=== PATIENT | female | born 1955 | race Caucasian/White ===

== ENCOUNTER 2017-04-01 15:25 | Emergency (ER) | payer MEDICAID, OTHER ==
[~2017-04-01] VITALS: Ht 157.5 cm; Wt 47.6 kg
[~2017-04-01 15:25] MED LIST: DOCU-109 PO; FURO20TA3 PO; LUBI8CAP4 PO; OXYC15TA PO; POLY17PO29 PO; SPIR100T2 PO
[2017-04-01 16:44] VITALS: BP 106/69
[2017-04-01] MEDS ORDERED: HYDROcodone/APAP 5/325MG 1 TAB TABLET PO ONE (17:00)
[2017-04-01] MEDS ORDERED: HYDR-971 PO (18:41)
--- NOTE | 2017-04-01 18:41 | PHYS DOC ---
Past Medical History Past Medical History: Constipation, Other Additional Past Medical Histor: Hepatitis C, cirrhosis, bowel obstruction Past Surgical History: , Tonsillectomy Additional Past Surgical Histo: dilation and curretage x2, hernia repair, paracentesis Alcohol Use: Heavy Drug Use: None Adult General Chief Complaint Chief Complaint: MECHANICAL FALL HPI HPI Patient is a 61 year old female with history significant for liver cirrhosis secondary to alcohol abuse in the past, presents here today complaining of pain to her left wrist that she incurred after falling down while moving furniture. Patient reports she tripped while walking backwards and fell on outstretched hand. Patient denies any history of hypertension diabetes lung or kidney problems. Patient reports she still drinks and drank approximately one and half beers earlier today. Patient denies any pain anywhere else other than to her left wrist. Patient denies any neck pain back pain. Patient has any head trauma. Patient has a loss of consciousness. Patient has a nausea vomiting diarrhea fevers shakes chills cough cold or rhinorrhea. Patient reports been tolerating by mouth's well. Review of systems: Constitutional: Denies fever or chills Eyes: Denies change in visual acuity, redness, or eye pain HENT: Denies nasal congestion or sore throat Respiratory: Denies cough or shortness of breath All other systems were reviewed and found to be within normal limits, except as documented in this note. Physical exam: Constitutional: Well developed, well nourished, no acute distress, non-toxic appearance. HENT: Normocephalic, atraumatic, bilateral external ears normal, nose normal. Eyes: PERRLA, EOMI, conjunctiva normal, no discharge. Neck: Normal range of motion, no tenderness, supple, no stridor. Cardiovascular: Heart rate regular rhythm, Lungs & Thorax: Bilateral breath sounds clear to auscultation Abdomen: No abdominal distention. Skin: Warm, dry, no erythema, no rash. Back: Normal spinal curvature Extremities: Patient with soft tissue swelling and deformity to her left wrist. Patient has no snuffbox tenderness. Patient is neurovascularly intact. Patient has good capillary refill. Patient's radial ulnar and median nerves all intact. Neurologic: Alert and oriented X 3, normal motor function, normal sensory function, no focal deficits noted. Psychologic: Affect normal, judgement normal, mood normal. X-ray of left wrist reveals a minimally displaced not shortened distal radius fracture of the left wrist with no intra-articular involvement. There is a question of a nondisplaced ulnar styloid fracture however this appears to be a likely old fracture. Assessment and plan: 1. Left distal radius fracture. Patient is clinically and hemodynamically stable at this time other than the injury to her left wrist. Patient has no evidence of any head injury from the fall. Patient has no evidence of any hip fractures or any other joint deformities. All other long bones are palpated and all joints have been range of motion without any evidence of discomfort soft tissue swelling or abnormalities. Case has been discussed with Dr. Thomas, our orthopedic surgeon on-call. Patient will be placed in a sugar tong splint and will call her office for an appointment on Tuesday. Patient is neurovascular intact to do well otherwise. She has been given adequate analgesia in the ER and will be sent home with [place] to assist her with the pain. Patient cirrhosis has been taken into consideration and discussion with the patient regarding acetaminophen and liver disease and she is comfortable with a short trial of [place]. Splint care: Sugar tong splint applied to left wrist. Patient is neurovascularly intact. Current Medications Current Medications Current Medications Medications (Trade) Dose Ordered Sig/Matthias Start Time Stop Time Status Last Admin Dose Admin Acetaminophen/ Hydrocodone Bitart (Lortab 5/325) 1 tab 1X ONCE 04/01/17 17:00 04/01/17 17:01 DC 04/01/17 16:45 1 TAB Allergies Allergies Allergies Coded Allergies Type Severity Reaction Last Updated Verified No Known Drug Allergies 04/01/17 No Current Patient Data Vital Signs Vital Signs Date Time Temp Pulse Resp B/P (MAP) Pulse Ox O2 Delivery O2 Flow Rate FiO2 04/01/17 16:45 18 99 Room Air 04/01/17 16:44 89 04/01/17 15:45 98.7 114/76 (89) 98.7 EKG EKG [] Radiology/Procedures Radiology/Procedures [] Course & Med Decision Making Course & Med Decision Making Pertinent Labs and Imaging studies reviewed. (See chart for details) [] Dragon Disclaimer Dragon Disclaimer This electronic medical record was generated, in whole or in part, using a voice recognition dictation system. Departure Departure Impression: Primary Impression: Left wrist fracture Additional Impression: Distal radius fracture, left Disposition: HOME, SELF-CARE Condition: IMPROVED Referrals: UNKNOWN PCP NAME (PCP) LUBNA THOMAS MD Patient Instructions: Arm Sling Use, [id number], Cast or Splint Care, Wrist Fracture Scripts Hydrocodone/Apap 5-325 (NORCO 5-325 TABLET) 1 Each Tablet 1 TAB PO QID Y for PAIN, #20 TAB Prov: JACEK LUZ MD 04/01/17 Problem Qualifiers JACEK LUZ MD Apr 01, 2017 18:41
--- NOTE | 2017-04-02 09:03 | RAD ---
WRIST 3V LEFT History:trauma, wrist injury today Comparison: None Findings:3 views of the left wrist are submitted. There is horizontal, slightly comminuted, posttraumatic, impacted fracture of the distal radial diametaphysis. There is minimal displacement. There is ulnar styloid process fracture of uncertain age. There is degenerative change of the first carpometacarpal articulation. Impression: 1.There is distal radius fracture. There is ulnar styloid process fracture of uncertain chronicity.
[2017-05-08] MEDS ORDERED: OMEP20TA63 PO (20:20)
[2017-05-08] MEDS ORDERED: CIPR250T PO (20:20)
[2017-05-08] MEDS ORDERED: ONDA4TAB10 PO (20:20)
== END 2017-04-01 18:45 | disposition home or self-care (01) ==
LOC: ER 15:25
DX: S52.502A Unspecified fracture of the lower end of left radius, initial encounter for closed fracture (principal); W01.0XXA Fall on same level from slipping, tripping and stumbling without subsequent striking against object, initial encounter; Y93.89 Activity, other specified; Y99.8 Other external cause status; Y92.89 Other specified places as the place of occurrence of the external cause
CPT/HCPCS: 29125; 73110; 99284-25

== ENCOUNTER 2017-05-08 17:04 | Emergency (ER) | payer OTHER ==
[2017-05-08] MEDS: LIDO:MAALOX:DONNATAL 1:1:1 15 ML SINGLE DOSE SWSW (18:02)
[2017-05-08] MEDS: diphenhydrAMINE 50 MG/ML VIAL IVP (18:11)
[2017-05-08] MEDS: METOCLOPRAMIDE HCL 10 MG/2 ML VIAL. IV (18:14)
[2017-05-08 18:25] LABS: ADD MAN DIFF? NO
[2017-05-08 18:27] LABS: BASO # 0.1 x10^3/uL (0.0-0.2); BASO % 2 % (0-3); EOS # 0.2 x10^3/uL (0.0-0.7); EOS % 2 % (0-3); HEMATOCRIT 30.4 % (36.0-47.0); HEMOGLOBIN 9.9 g/dL (12.0-15.5); LYMPH # 1.4 x10^3/uL (1.0-4.8); LYMPH % 22 % (24-48); MEAN CORPUSCULAR HEMOGLOBIN 27 pg (25-35); MEAN CORPUSCULAR HGB CONC 32 g/dL (31-37); MEAN CORPUSCULAR VOLUME 85 fL (79-100); MONO # 0.6 x10^3/uL (0.0-1.1); MONO % 10 % (0-9); NEUT # 4.1 x10^3uL (1.8-7.7); NEUT % 64 % (31-73); PLATELET COUNT 211 x10^3/uL (140-400); RED BLOOD COUNT 3.59 x10^6/uL (3.50-5.40); RED CELL DISTRIBUTION WIDTH 16.2 % (11.5-14.5); WHITE BLOOD COUNT 6.4 x10^3/uL (4.0-11.0)
[2017-05-08 18:38] LABS: INR 1.5 (0.8-1.1); PROTHROMBIN TIME PATIENT 16.8 SEC (11.7-14.0)
[2017-05-08 18:39] LABS: PARTIAL THROMBOPLASTIN TIME 34 SEC (24-38)
[2017-05-08 18:42] LABS: ANION GAP 11 (6-14); BLOOD UREA NITROGEN 10 mg/dL (7-20); BUN/CREATININE RATIO 11 (6-20); CALCIUM 8.3 mg/dL (8.5-10.1); CARBON DIOXIDE 27 mmol/L (21-32); CHLORIDE 103 mmol/L (98-107); CREATININE 0.9 mg/dL (0.6-1.0); GFR 63.7; GLUCOSE 100 mg/dL (70-99); POTASSIUM 3.1 mmol/L (3.5-5.1); SODIUM 141 mmol/L (136-145)
[2017-05-08 18:43] LABS: ETHANOL < 10 mg/dL (0-10)
[2017-05-08 18:49] LABS: ALBUMIN 2.8 g/dL (3.4-5.0); ALBUMIN/GLOBULIN RATIO 0.8 (1.0-1.7); ALK PHOS 121 U/L (46-116); ALT (SGPT) 20 U/L (14-59); AST (SGOT) 37 U/L (15-37); LIPASE 186 U/L (73-393); TOTAL BILIRUBIN 2.4 mg/dL (0.2-1.0); TOTAL PROTEIN 6.5 g/dL (6.4-8.2)
[2017-05-08 18:53] LABS: NT-PRO BNP 344 pg/mL (0-124); TROPONINI < 0.017 ng/mL (0.000-0.055)
[2017-05-08 19:18] LABS: BILIRUBIN,URINE MODERATE (NEG); CLARITY,URINE CLOUDY; COLOR,URINE ORANGE; GLUCOSE,URINE NEGATIVE (NEG); NITRITE,URINE POSITIVE (NEG); PH,URINE 5.5; PROTEIN,URINE 30 mg/dL (NEG-TRACE)
[2017-05-08 19:24] LABS: BACTERIA,URINE MANY /HPF (0-FEW); RBC,URINE 0 /HPF (0-2); SQUAMOUS EPITHELIAL CELL,UR MANY /LPF
[2017-05-08 19:25] LABS: BARBITURATES NEG (NEG); BENZODIAZEPINES POS (NEG); CANNABINOIDS NEG (NEG); COCAINE NEG (NEG); METHADONE NEG (NEG); OPIATES NEG (NEG); PHENCYCLIDINE NEG (NEG)
[2017-05-08 19:29] LABS: AMPHETAMINE/METHAMPHETAMINE NEG (NEG); ETHANOL, URINE NEG (NEG)
[2017-05-08] MEDS: POTASSIUM CHLORIDE 20 MEQ TABLET.ER. PO (19:51)
== END 2017-05-08 20:31 | disposition home or self-care (01) ==
LOC: ER 17:04
DX: N39.0 Urinary tract infection, site not specified (principal); R07.89 Other chest pain; E87.6 Hypokalemia; Z86.19 Personal history of other infectious and parasitic diseases; Z98.890 Other specified postprocedural states
CPT/HCPCS: 36415; 74022; 80053; 80307; 81001; 83690; 83735; 83880; 84484; 85025; 85610; 85730; 87086; 93005; 96365; 96375; 99285-25; G0480; J0690; J1200; J2765

== ENCOUNTER 2017-06-01 09:44 | Emergency (ER) | payer OTHER ==
[2017-06-01] MEDS ORDERED: HYDROcodone/APAP 5/325MG 1 TAB TABLET PO (10:15)
[2017-06-01] MEDS ORDERED: HYDROcodone/APAP 5/325MG 1 TAB TABLET (10:15)
[2017-06-01] MEDS: METOCLOPRAMIDE 10 MG TABLET. PO (10:17)
[2017-06-01] MEDS: ONDANSETRON ODT 4 MG TAB.RAPDIS. PO (10:53)
[2017-06-01] MEDS: PROMETHAZINE IM 25 MG/ML VIAL IM (10:53)
[2017-06-01] MEDS: MORPHINE SULFATE 10 MG/ML VIAL. IM (10:55)
== END 2017-06-01 11:21 | disposition home or self-care (01) ==
LOC: ER 09:44
DX: R10.9 Unspecified abdominal pain (principal); R11.2 Nausea with vomiting, unspecified; I10 Essential (primary) hypertension; Z86.19 Personal history of other infectious and parasitic diseases
CPT/HCPCS: 96372; 99284-25; J2270; J2550; J8597; Q0162